=== PATIENT | male | born 1995 | race Caucasian/White ===

== ENCOUNTER → 2022-07-10 | Outpatient (CLI) | payer BC, SELFPAY ==
[2022-07-10 17:50] LABS: Absolute Lymphocyte Count 1.76 X10^3/uL (0.83-4.51); Absolute Neutrophil Count 4.4 X10^3/uL (2.0-7.7); Basophil# 0.03 X10^3/uL; Basophil% 0.4 % (0-1); Eosinophil# 0.12 X10^3/uL; Eosinophils% 1.8 % (0-5); Hemoglobin 14.1 g/dL (13.0-16.5); Lymphocyte # 1.76 X10^3/ul (0.83-4.51); Lymphocyte % 25.7 % (19-41); Mean Corpuscular Hgb 28.8 pg (27.0-32.0); Mean Corpuscular Volume 89.8 fL (80-94); Mean Platelet Vol. 9.8 fl (6.2-12.0); Monocyte# 0.54 X10^3/uL; Monocyte% 7.9 % (0-10); NRBC Flagged by Analyzer 0 % (0-5); Neutrophil # 4.38 X10^3/uL (2.7-7.7); Neutrophil % 64.1 % (47-70); Platelet Count 231 K/mm3 (150-450); RBC Distribution Width CV 13.1 % (11.6-14.6); RBC Distribution Width SD 42.6 fl (35.1-43.9); White Blood Count 6.8 K/mm3 (4.4-11.0)
[2022-07-10 18:53] LABS: ALB/GLOB Ratio 1.1 RATIO (0.9-2.4); AST(SGOT) 21 U/L (15-37); Alanine Aminotransfer ALT/SGPT 20 U/L (16-61); Albumin, Serum 4.1 g/dL (3.2-5.0); Alkaline Phosphatase 57 U/L (45-117); Anion Gap 5 (5-15); BUN 17 mg/dL (7-18); BUN/Creat Ratio 14.7 RATIO (10-20); Calcium,Total 8.9 mg/dL (8.5-10.1); Chloride 109 mmol/L (98-107); Cholesterol 128 mg/dL (200); Creatinine, Serum 1.16 mg/dL (0.70-1.30); EST Glomerular Filtration Rate 79 mL/min (>60); Est Glom Filt Rate - Afr Amer 96 mL/min (>60); Globulin 3.6 g/dL (2.2-4.2); Glucose 87 mg/dL (74-106); Hemoglobin A1c 5.3 % (3.8-5.6); High Density Lipoprotein 39 mg/dL; Potassium 4.3 mmol/L (3.5-5.1); Protein, Total 7.7 g/dL (6.4-8.2); Sodium Level 140 mmol/L (136-145); Thyroid Stim Hormone (TSH) 1.99 uIU/mL (0.358-3.74); Triglycerides 89 mg/dL; Very Low Density Lipoprotein 18 mg/dL (5-40)
== END | disposition home or self-care (01) ==
PROVIDERS: PCP Family Medicine; Referring Provider Family Medicine; Visit Provider Family Medicine
DX: Z00.00 Encounter for general adult medical examination without abnormal findings (principal); Z13.0 Encounter for screening for diseases of the blood and blood-forming organs and certain disorders involving the immune mechanism; Z13.1 Encounter for screening for diabetes mellitus; Z13.220 Encounter for screening for lipoid disorders; Z13.29 Encounter for screening for other suspected endocrine disorder
CPT/HCPCS: 36415; 80053; 80061; 83036; 84443; 85025

== ENCOUNTER 2022-11-13 17:52 | Outpatient (RCR) | payer BC, SELFPAY | END 2022-11-13 19:00 | disposition home or self-care (01) | LOC: PT 17:52 | PROVIDERS: PCP Family Medicine; Visit Provider Orthopaedic Surgery Sports Medicine | DX: M70.52 Other bursitis of knee, left knee (principal); M25.462 Effusion, left knee; M25.562 Pain in left knee ==

== ENCOUNTER → 2024-10-01 | Outpatient (CLI) | payer BC, SELFPAY ==
--- OUTSIDE RECORDS SUMMARY | 2024-10-01 11:59 | XMS RPT_ITS | CCD ---
Author Organization [facility] Care Team Providers Care Case Sealer Name Role Phone Unavailable Primary Care Provider UnavailDO Nolvia Grewal Primary Care Provider DO Nolvia Majano Referring Provider MD Blu López Attending Provider [phone] Blu López Attending Unavailable Nolvia Majano Primary Care Unavailable Blu López Referring Unavailable Blu López Attending Unavailable Kishore Landa Attending Unavailable Nolvia Majano Primary Care Unavailable Blu López Attending Unavailable Nolvia Majano Referring Unavailable Nolvia Majano Referring Unavailable Nolvia Majano Attending Unavailable Nolvia Majano Primary Care Unavailable Nolvia Majano Primary Care Unavailable Blu López Attending Unavailable Medications Current Medications Medication Drug Class(es) Dates Sig (Normalized) Sig (Original) cholecalciferol 0.025 mg oral capsule (2 sources) Vitamin D Start: 01-31-2022 take 25 ug by mouth once daily Cholecalciferol (Vitamin D3) Active 25 MCG PO DAILY January 31, 2022 12:00am Multivitamin (Daily Multi-Vitamin) tablet (2 sources) Start: 01-31-2022 take 1 tablet by mouth once daily Multivitamin (Daily Multi-Vitamin) tablet Active 1 TABLET PO DAILY January 31, 2022 12:00am Start: 01-31-2022 take 1 tablet by radha th once daily Multivitamin (Daily Multi-Vitamin) tablet Active 1 TABLET PO DAILY January 31, 2022 1:00am Problems Problem Classification Problem Date Documented Da te Episodic/Chronic Other connective tissue disease (2 sources) Pes anserinus bursitis of left knee; Translations: [Other bursitis of knee, left knee] 12-15-2022 Episodic Other connective tissue disease (3 sources) Other bursitis of knee, left knee; Translations: [Pes anserinus tendinitis or bursitis] Onset: 11-15-2022 11-07-2022 Episodic Other non-traumatic joint disorders (2 sources) Swelling of knee joint; Translations: [Effusion, left knee] 01-31-2022 Episodic Other non-traumatic joint disorders (4 sources) Pain in left knee; Translations: [Left knee pain] Onset: 01-01-2023 01-31-2022 Episodic Other non-traumatic joint disorders (2 sources) Effusion, left knee; Translations: [Effusion of joint, lower leg] Onset: 01-01-2023 11-07-2022 Episodic Results Test Name Value Interpretation Reference Range Facility Orthopedic Visit Reporton Orthopedic Visit Report [facility] [address] [place] [address] OFFICE VISIT Date of Service: 11/07/22 MR#: [id number] Acct: [id number] Name: MONA BURNS Rep #: [id number] : 1995 Provider: Dr. Blu churchill MD Age/Sex: 27/M Location: [facility] Status: Signed Intake Intake Visit Reasons: LEFT KNEE Chief Complaint: Left knee Accompanied by: Self Is patient in pain?: Yes Pain scale (1-10): 3 Allergies No Known Allergies Allergy (Verified 11/07/22 10:13) Medications cholecalciferol (vitamin D3) 25 mcg (1,000 unit) capsule 25 mcg PO DAILY 01/31/22 [History Confirmed 11/07/22] multivitamin (Daily Multi-Vitamin tablet) 1 tab PO DAILY 01/31/22 [History Confirmed 11/07/22] PFSH Medical History Left knee pain Pes anserinus bursitis of left knee Swelling of left knee joint Surgical History History of repair of ACL History of right knee surgery Family History Other Hypertension Social History Smoking Status: Never smoker alcohol intake: never what type of physical activity do you participate in: other details: basketball frequency: 3-4 times per week HPI LEFT KNEE Details: Parts of this documentation were recorded by a scribe, this documentation accurately reflects the service provided and the decisions made by me, Dr. Blu López MD 11/07/22 0918. MONA BURNS is a 27 year old M here today for 9 months FU left knee pain seems to come from the pes bursitis. He is still experiencing pain and especially with swelling after any sort of physical demanding activity. He likes to play basketball once a week he has pain in the anterior medial aspect of the knee. Has some catching no giving way the knee feels stable bilateral. It is swelling and limiting his activities the next day. Ortho Exam General General: Yes no acute distress Neurologic: Yes alert and Yes oriented x3 Psychologic: Yes reasonable and appropriate Right Knee Patella Translation: 2 Left Knee Skin/Wound: Yes CDI, No ecchymosis, No erythema and No swelling Knee ROM: Yes ROM-Flexion 0-140 and Yes ROM-Passive Extension -10 to 0 Examination: No med jt line tenderness, Yes Lat jt line tenderness, No TTP inf pole patella, No Crepitus, No Pain with flexion, Yes Simon's Test, No TTP Patellar tendon, No TTP Tibial tubercle, Yes TTP Pes Anserine and No Illiotibial band tenderness Stability: NML: Anterior Drawer, NML: Bryan, NML: Posterior Drawer, NML: Valgus 0, NML: Valgus 30, NML: Varus 0 and NML: Varus 30 Patella Translation: 2 Patellar Tilt Normal: Yes Patella Grind: No KNEE: normal gait, small bruise on medial joint line Supplemental Info [facility] [address] [place] [address] Knee 4 or More Views MR#: [id number] Acct: [id number] Name: MONA BURNS Rep #: [id number] : 1995 M 26 From: Troy Solano MD PCP: Status: DEP AMB Study: Knee 4 or More Views Date of Exam: 01/31/22 Exam# [id number] Ordering Dr: Blu López MD STUDY: X-RAY - LEFT KNEE REASON FOR EXAM: Male, 26 years old. Pain and swelling. TECHNIQUE: 5 view(s) of the knee. COMPARISON: None. FINDINGS: Normal visualized distal femur. Normal visualized proximal tibia and fibula. Normal proximal tibiofibular articulation. Normal medial femorotibial compartment. Normal lateral femorotibial compartment. Normal patellofemoral articulation. The soft tissue structures are unremarkable. RAD/Knee 4 or More Views IMPRESSION: No abnormality of the left knee. Electronically Signed: Troy Solano, at 13:21 EST , Coding Level of Care Code Off vis,est,level 3 Diagnoses Pes anserinus bursitis of left knee M70.52 Swelling of left knee joint M25.462 Left knee pain M25.562 Assessment and Plan Assessment and Plan (1) Pes anserinus bursitis of left knee: Status: Acute Plan: MONA BURNS is a 27 year old M here today for 9 months FU left knee pain seems to come from the pes bursitis. (2) Swelling of left knee joint: Status: Acute Plan: 27 yr Man with ongoing 9 months history of left knee pain. He has swelling after activities with a positive Simon's test and prior arthroscopy on the contralateral knee. I think it is worthwhile to obtain an MRI here to rule o (more content not included)... Normal [facility] Absolute lymphocyte countOrd ered By: Nolvia Majano on 07-10-2022 Lymphocytes Auto (Unsp spec) [#/Vol] 1.76 10*3/uL 0.83-4.51 [facility] Basophil percentageOrdered B y: Nolvia Majano on 07-10-2022 Basophils/100 WBC (Bld) 0.4 % 0-1 [facility] Bilirubin [Mass/Vol] 0.40 mg/dL 0.20-1.00 [facility] Comment on above: For patients on eltr ombopag therapy, use of Dimension Atlantic TBIL is not recommended. Chloride [Moles/Vol] 109 mmol/L 98-107 [facility] Cholesterol [Mass/Vol] 128 mg/dL <200 [facility] Comment on above: <200 mg/dL Desirable 200-240 mg/dL Borderline >240 mg/dL High Risk Eosinophils/100 WBC (Bld) 1.8 % 0-5 [facility] Glucose [Mass/Vol] 87 mg/dL 74-106 [facility] Neutrophils (Bld) [#/Vol] 4.4 10*3/uL 2.0-7.7 [facility] Neutrophils/100 WBC (Bld) 64.1 % 47-70 [facility] Potassium [Moles/Vol] 4.3 mmol/L 3.5-5.1 [facility] Protein [Mass/Vol] 7.7 g/dL 6.4-8.2 [facility] Sodium [Moles/Vol] 140 mmol/L 136-145 [facility] Triglyceride [Mass/Vol] 89 mg/dL <199 [facility] Comment on above: The drugs N-Acetylcy steine and Metamizole may falsely depress this assay.Serum Triglycerides Reference Interval Normal <150 mg/dL Borderline high 150 - 199 mg/dL High 200 - 499 mg/dL Very High > or = 500 mg/dL WBC (Bld) [#/Vol] 6.8 10*3/uL 4.4-11.0 [facility] Blood erythrocytes count (nu mber/volume)Ordered By: Nolvia Majano on 07-10-2022 RBC (Bld) [#/Vol] 4.90 10*6/uL 4.6-6.2 [facility] Blood hemoglobin measurement (mass/volume)Ordered By: Nolvia Majano on 07-10-2022 Hemoglobin (Bld) [Mass/Vol] 14.1 g/dL 13.0-16.5 [facility] Blood lymphocytes/100 leukoc ytesOrdered By: Nolvia Majano on 07-10-2022 Lymphocytes/100 WBC (Bld) 25.7 % 19-41 [facility] Blood monocytes/100 leukocyt esOrdered By: Nolvia Majano on 07-10-2022 Monocytes/100 WBC (Bld) 7.9 % 0-10 [facility] Blood platelet mean volumeOr dered By: Nolvia Majano on 07-10-2022 Platelet mean volume (Bld) [Entitic vol] 9.8 fL 6.2-12.0 [facility] CBC W/Diff, Automatedon 06-18 Absolute Lymph 1.76 X10 3/uL Normal 0.83-4.51 [facility] Comment on above: Order Comment: Order Date: 07/10/22 Order Info: 0184-1 - CBCD Performed By: #### L 100.0100, L501.9985, L500.4050, L500.4100, L501.9520 #### [facility] [address] [place], [address] Absolute Neut 4.4 X10 3/uL Normal 2.0-7.7 [facility] Comment on above: Order Comment: Order Date: 07/10/22 Order Info: 0184-1 - CBCD Performed By: #### L 100.0100, L501.9985, L500.4050, L500.4100, L501.9520 #### [facility] [address] [place], [address] Basophils/100 WBC (Bld) 0.4 % Normal 0-1 [facility] Comment on above: Order Comment: Order Date: 07/10/22 Order Info: 0184-1 - CBCD Performed By: #### L 100.0100, L501.9985, L500.4050, L500.4100, L501.9520 #### [facility] [address] [place], [address] Eosinophils/100 WBC (Bld) 1.8 % Normal 0-5 [facility] Comment on above: Order Comment: Order Date: 07/10/22 Order Info: 0184-1 - CBCD Performed By: #### L 100.0100, L501.9985, L500.4050, L500.4100, L501.9520 #### [facility] [address] [place], [address] Erythrocyte distribution width (RBC) [Ratio] 13.1 % Normal 11.6-14.6 [facility] Comment on above: Order Comment: Order Date: 07/10/22 Order Info: 0184-1 - CBCD Performed By: #### L 100.0100, L501.9985, L500.4050, L500.4100, L501.9520 #### [facility] [address] [place], [address] Hematocrit (Bld) [Volume fraction] 44.0 % Normal 40-54 [facility] Comment on above: Order Comment: Order Date: 07/10/22 Order Info: 0184-1 - CBCD Performed By: #### L 100.0100, L501.9985, L500.4050, L500.4100, L501.9520 #### [facility] [address] [place], [address] Hemoglobin (Bld) [Mass/Vol] 14.1 g/dL Normal 13.0-16.5 [facility] Comment on above: Order Comment: Order Date: 07/10/22 Order Info: 0184-1 - CBCD Performed By: #### L 100.0100, L501.9985, L500.4050, L500.4100, L501.9520 #### [facility] [address] [place], [address] IG% 0.100 Normal 0.0-0.9 [facility] Comment on above: Order Comment: Order Date: 07/10/22 Order Info: 0184-1 - CBCD Result Comment: IG% - Immature Granulocytes (promyelocytes, myelocytes and metamyelocytes) > 1% indicates that a LEFT SHIFT is Present. Performed By: #### L 100.0100, L501.9985, L500.4050, L500.4100, L501.9520 #### [facility] [address] [place], [address] Lymphocytes/100 WBC (Bld) 25.7 % Normal 19-41 [facility] Comment on above: Order Comment: Order Date: 07/10/22 Order Info: 018- - CBCD Performed By: #### L 100.0100, L501.9985, L500.4050, L500.4100, L501.9520 #### [facility] [address] [place], [address] MCH (RBC) [Entitic mass] 28.8 pg Normal 27.0-32.0 [facility] Comment on above: Order Comment: Order Date: 07/10/22 Order Info: 018- - CBCD Performed By: #### L 100.0100, L501.9985, L500.4050, L500.4100, L501.9520 #### [facility] [address] [place], [address] MCHC (RBC) [Mass/Vol] 32.0 g/dL Normal 32-36 [facility] Comment on above: Order Comment: Order Date: 07/10/22 Order Info: 018- - CBCD Performed By: #### L 100.0100, L501.9985, L500.4050, L500.4100, L501.9520 #### [facility] [address] [place], [address] MCV (RBC) [Entitic vol] 89.8 fL Normal 80-94 [facility] Comment on above: Order Comment: Order Date: 07/10/22 Order Info: 018-1 - CBCD Performed By: #### L 100.0100, L501.9985, L500.4050, L500.4100, L501.9520 #### [facility] [address] [place], [address] Monocytes/100 WBC (Bld) 7.9 % Normal 0-10 [facility] Comment on above: Order Comment: Order Date: 07/10/22 Order Info: 0184-1 - CBCD Performed By: #### L 100.0100, L501.9985, L500.4050, L500.4100, L501.9520 #### [facility] [address] [place], [address] Neutrophils/100 WBC (Bld) 64.1 % Normal 47-70 [facility] Comment on above: Order Comment: Order Date: 07/10/22 Order Info: 0184-1 - CBCD Performed By: #### L 100.0100, L501.9985, L500.4050, L500.4100, L501.9520 #### [facility] [address] [place], [address] Nucleated RBC (Bld) [#/Vol] 0 10*3/uL Normal 0-5 [facility] Comment on above: Order Comment: Order Date: 07/10/22 Order Info: 0184-1 - CBCD Performed By: #### L 100.0100, L501.9985, L500.4050, L500.4100, L501.9520 #### [facility] [address] [place], [address] Platelet mean volume (Bld) [Entitic vol] 9.8 fL Normal 6.2-12.0 [facility] Comment on above: Order Comment: Order Date: 07/10/22 Order Info: 0184-1 - CBCD Performed By: #### L 100.0100, L501.9985, L500.4050, L500.4100, L501.9520 #### [facility] [address] [place], [address] Platelets (Bld) [#/Vol] 231 10*3/uL Normal 150-450 [facility] Comment on above: Order Comment: Order Date: 07/10/22 Order Info: 0184-1 - CBCD Performed By: #### L 100.0100, L501.9985, L500.4050, L500.4100, L501.9520 #### [facility] [address] [place], [address] RBC (Bld) [#/Vol] 4.90 10*6/uL Normal 4.6-6.2 [facility] Comment on above: Order Comment: Order Date: 07/10/22 Order Info: 0184-1 - CBCD Performed By: #### L 100.0100, L501.9985, L500.4050, L500.4100, L501.9520 #### [facility] [address] [place], [address] RDW SD 42.6 fl Normal 35.1-43.9 [facility] Comment on above: Order Comment: Order Date: 07/10/22 Order Info: 0184-1 - CBCD Performed By: #### L 100.0100, L501.9985, L500.4050, L500.4100, L501.9520 #### [facility] [address] [place], [address] WBC (Bld) [#/Vol] 6.8 10*3/uL Normal 4.4-11.0 [facility] Comment on above: Order Comment: Order Date: 07/10/22 Order Info: 0184-1 - CBCD Performed By: #### L 100.0100, L501.9985, L500.4050, L500.4100, L501.9520 #### [facility] [address] [place], [address] Comprehensive Metabolic Prof ilon 07-10-2022 Albumin [Mass/Vol] 4.1 g/dL Normal 3.2-5.0 [facility] Comment on above: Order Comment: Order Date: 07/10/22 Order Info: [id number] - CMP Order Info: [id number] - LIPID Order Info: [id number] - TSH Performed By: #### L 100.0100, L501.9985, L500.4050, L500.4100, L501.9520 #### [facility] [address] [place], [address] Albumin/Globulin [Mass ratio] 1.1 {ratio} Normal 0.9-2.4 [facility] Comment on above: Order Comment: Order Date: 07/10/22 Order Info: [id number] - CMP Order Info: [id number] - LIPID Order Info: [id number] - TSH Performed By: #### L 100.0100, L501.9985, L500.4050, L500.4100, L501.9520 #### [facility] [address] [place], [address] ALK P 57 U/L Normal 45-117 [facility] Comment on above: Order Comment: Order Date: 07/10/22 Order Info: [id number] - CMP Order Info: [id number] - LIPID Order Info: [id number] - TSH Performed By: #### L 100.0100, L501.9985, L500.4050, L500.4100, L501.9520 #### [facility] [address] [place], [address] ALT [Catalytic activity/Vol] 20 U/L Normal 16-61 [facility] Comment on above: Order Comment: Order Date: 07/10/22 Order Info: [id number] - CMP Order Info: [id number] - LIPID Order Info: [id number] - TSH Performed By: #### L 100.0100, L501.9985, L500.4050, L500.4100, L501.9520 #### [facility] [address] [place], [address] AST [Catalytic activity/Vol] 21 U/L Normal 15-37 [facility] Comment on above: Order Comment: Order Date: 07/10/22 Order Info: [id number] - CMP Order Info: - LIPID Order Info: [id number] - TSH Performed By: #### L 100.0100, L501.9985, L500.4050, L500.4100, L501.9520 #### [facility] [address] [place], [address] Bilirubin [Mass/Vol] 0.40 mg/dL Normal 0.20-1.00 [facility] Comment on above: Order Comment: Order Date: 07/10/22 Order Info: [id number] - CMP Order Info: - LIPID Order Info: [id number] - TSH Result Comment: For patients on eltrombopag therapy, use of Dimension Atlantic TBIL is not recommended. Performed By: #### L 100.0100, L501.9985, L500.4050, L500.4100, L501.9520 #### [facility] [address] [place], [address] BUN/CRE 14.7 RATIO Normal 10-20 [facility] Comment on above: Order Comment: Order Date: 07/10/22 Order Info: [id number] - CMP Order Info: - LIPID Order Info: [id number] - TSH Performed By: #### L 100.0100, L501.9985, L500.4050, L500.4100, L501.9520 #### [facility] [address] [place], [address] CA,Total 8.9 mg/dL Normal 8.5-10.1 [facility] Comment on above: Order Comment: Order Date: 07/10/22 Order Info: [id number] - CMP Order Info: - LIPID Order Info: [id number] - TSH Performed By: #### L 100.0100, L501.9985, L500.4050, L500.4100, L501.9520 #### [facility] [address] [place], [address] Chloride [Moles/Vol] 109 mmol/L High 98-107 [facility] Comment on above: Order Comment: Order Date: 07/10/22 Order Info: 785- - CMP Order Info: [id number] - LIPID Order Info: [id number] - TSH Performed By: #### L 100.0100, L501.9985, L500.4050, L500.4100, L501.9520 #### [facility] [address] [place], [address] CO2 [Moles/Vol] 26.0 mmol/L Normal 21.0-32.0 [facility] Comment on above: Order Comment: Order Date: 07/10/22 Order Info: [id number] - CMP Order Info: - LIPID Order Info: [id number] - TSH Performed By: #### L 100.0100, L501.9985, L500.4050, L500.4100, L501.9520 #### [facility] [address] [place], [address] Creatinine [Mass/Vol] 1.16 mg/dL Normal 0.70-1.30 [facility] Comment on above: Order Comment: Order Date: 07/10/22 Order Info: [id number] - CMP Order Info: - LIPID Order Info: [id number] - TSH Result Comment: The validity of the calculated GFR GFRAA in patients over 70 years has not been determined. Clinical correlation is essential. Performed By: #### L 100.0100, L501.9985, L500.4050, L500.4100, L501.9520 #### [facility] [address] [place], [address] EST GFR - AA 96 mL/min Normal >60 [facility] Comment on above: Order Comment: Order Date: 07/10/22 Order Info: [id number] - CMP Order Info: - LIPID Order Info: [id number] - TSH Result Comment: Afri can [place] GFR Calc Performed By: #### L 100.0100, L501.9985, L500.4050, L500.4100, L501.9520 #### [facility] [address] [place], [address] GAP 5 Normal 5-15 [facility] Comment on above: Order Comment: Order Date: 07/10/22 Order Info: [id number] - CMP Order Info: [id number] - LIPID Order Info: 3 - TSH Performed By: #### L 100.0100, L501.9985, L500.4050, L500.4100, L501.9520 #### [facility] [address] [place], [address] GFR/1.73 sq M.predicted among non-blacks MDRD (S/P/Bld) [Vol rate/Area] 79 mL/min/{1.73_m2} Normal >60 [facility] Comment on above: Order Comment: Order Date: 07/10/22 Order Info: [id number] - CMP Order Info: - LIPID Order Info: 3 - TSH Result Comment: Non- GFR Calc Performed By: #### L 100.0100, L501.9985, L500.4050, L500.4100, L501.9520 #### [facility] [address] [place], [address] Globulin (S) [Mass/Vol] 3.6 g/dL Normal 2.2-4.2 [facility] Comment on above: Order Comment: Order Date: 07/10/22 Order Info: 07 - CMP Order Info: [id number] - LIPID Order Info: 3 - TSH Performed By: #### L 100.0100, L501.9985, L500.4050, L500.4100, L501.9520 #### [facility] [address] [place], [address] Glucose [Mass/Vol] 87 mg/dL Normal 74-106 [facility] Comment on above: Order Comment: Order Date: 07/10/22 Order Info: [id number] - CMP Order Info: - LIPID Order Info: [id number] - TSH Performed By: #### L 100.0100, L501.9985, L500.4050, L500.4100, L501.9520 #### [facility] [address] [place], [address] Potassium [Moles/Vol] 4.3 mmol/L Normal 3.5-5.1 [facility] Comment on above: Order Comment: Order Date: 07/10/22 Order Info: [id number] - CMP Order Info: - LIPID Order Info: [id number] - TSH Performed By: #### L 100.0100, L501.9985, L500.4050, L500.4100, L501.9520 #### [facility] [address] [place], [place], [address] Sodium [Moles/Vol] 140 mmol/L Normal 136-145 [facility] Comment on above: Order Comment: Order Date: 07/10/22 Order Info: [id number] - CMP Order Info: - LIPID Order Info: [id number] - TSH Performed By: #### L 100.0100, L501.9985, L500.4050, L500.4100, L501.9520 #### [facility] [address] [place], [address] T PROT 7.7 g/dL Normal 6.4-8.2 [facility] Comment on above: Order Comment: Order Date: 07/10/22 Order Info: [id number] - CMP Order Info: [id number] - LIPID Order Info: [id number] - TSH Performed By: #### L 100.0100, L501.9985, L500.4050, L500.4100, L501.9520 #### [facility] [address] [place], [place], [address] Urea nitrogen [Mass/Vol] 17 mg/dL Normal 7-18 [facility] Comment on above: Order Comment: Order Date: 07/10/22 Order Info: [id number] - CMP Order Info: [id number] - LIPID Order Info: [id number] - TSH Performed By: #### L 100.0100, L501.9985, L500.4050, L500.4100, L501.9520 #### [facility] [address] [place], [place], [address] Determination of erythrocyte mean corpuscular volume (MCV)Ordered By: Nolvia Majano on 07-10-2022 MCV (RBC) [Entitic vol] 89.8 fL 80-94 [facility] Hematocrit Auto (Bld) [Volum e fraction]Ordered By: Nolvia Majano on 07-10-2022 Hematocrit (Bld) [Volume fraction] 44.0 % 40-54 [facility] Hemoglobin A1con 07-10-2022 HbA1c (Bld) [Mass fraction] 5.3 % Normal 3.8-5.6 [facility] Comment on above: Order Comment: Order Date: 07/10/22 Order Info: [id number] - A1C Result Comment: Norm al < 5.7 % Prediabetic 5.7 - 6.4 % Diabetic >or= 6.5 % Please note range changes. Performed By: #### L 100.0100, L501.9985, L500.4050, L500.4100, L501.9520 #### [facility] [address] [place], [place], [id number] Laboratory - Chemistry and C hemistry - challengeOrdered By: Nolvia Majano on 07-10-2022 ALP [Catalytic activity/Vol] 57 U/L 45-117 [facility] ALT [Catalytic activity/Vol] 20 U/L 16-61 [facility] CO2 [Moles/Vol] 26.0 mmol/L 21.0-32.0 [facility] Globulin (S) [Mass/Vol] 3.6 g/dL 2.2-4.2 [facility] Urea nitrogen/Creatinine [Mass ratio] 14.7 mg/mg 10-20 [facility] - Hematology and Cell countsOrdered By: Nolvia Majano on 07-10-2022 Erythrocyte distribution width (RBC) [Entitic vol] 42.6 fL 35.1-43.9 [facility] Erythrocyte distribution width (RBC) [Ratio] 13.1 % 11.6-14.6 [facility] Immature granulocytes/100 WBC (Bld) 0.100 % 0.0-0.9 [facility] Comment on above: IG% - Immature Granu locytes (promyelocytes, myelocytes and metamyelocytes) > 1% indicates that a LEFT SHIFT is Present. MCH (RBC) [Entitic mass] 28.8 pg 27.0-32.0 [facility] Nucleated RBC/100 WBC (Bld) [Ratio] 0 % 0-5 [facility] Lipid Profileon 07-10-2022 Cholesterol [Mass/Vol] 128 mg/dL Normal 200 [facility] Comment on above: Order Comment: Order Date: 07/10/22 Order Info: [id number] - CMP Order Info: [id number] - LIPID Order Info: [id number] - TSH Result Comment: <200 mg/dL Desirable 200-240 mg/dL Borderline >240 mg/dL High Risk Performed By: #### L 100.0100, L501.9985, L500.4050, L500.4100, L501.9520 #### [facility] [address], [place], [address] Cholesterol in HDL [Mass/Vol] 39 mg/dL Low [facility] Comment on above: Order Comment: Order Date: 07/10/22 Order Info: [id number] - CMP Order Info: [id number] - LIPID Order Info: [id number] - TSH Result Comment: The drugs N-Acetylcysteine and Metamizole may falsely depress this assay. Reference Range HDL <40 mg/dL Low HDL Cholesterol HDL >or= 60 mg/dL High HDL Cholesterol Performed By: #### L 100.0100, L501.9985, L500.4050, L500.4100, L501.9520 #### [facility] [address] [place], [address] Cholesterol in LDL [Mass/Vol] 71 mg/dL Normal 0-130 [facility] Comment on above: Order Comment: Order Date: 07/10/22 Order Info: [id number] - CMP Order Info: [id number] - LIPID Order Info: 6-3 - TSH Performed By: #### L 100.0100, L501.9985, L500.4050, L500.4100, L501.9520 #### [facility] [address] [place], [address] Cholesterol in VLDL [Mass/Vol] 18 mg/dL Normal 5-40 [facility] Comment on above: Order Comment: Order Date: 07/10/22 Order Info: [id number] - CMP Order Info: [id number] - LIPID Order Info: 3 - TSH Performed By: #### L 100.0100, L501.9985, L500.4050, L500.4100, L501.9520 #### [facility] [address] [place], [address] Triglyceride [Mass/Vol] 89 mg/dL Normal [facility] Comment on above: Order Comment: Order Date: 07/10/22 Order Info: [id number] - CMP Order Info: [id number] - LIPID Order Info: [id number] - TSH Result Comment: The drugs N-Acetylcysteine and Metamizole may falsely depress this assay. Serum Triglycerides Reference Interval Normal <150 mg/dL Borderline high 150 - 199 mg/dL High 200 - 499 mg/dL Very High > or = 500 mg/dL Performed By: #### L 100.0100, L501.9985, L500.4050, L500.4100, L501.9520 #### [facility] [address] [place], [address] MCHC Auto (RBC) [Mass/Vol]Or dered By: Nolvia Majano on 07-10-2022 MCHC (RBC) [Mass/Vol] 32.0 g/dL 32-36 [facility] No Panel InformationOrdered By: Nolvia Majano on 07-10-2022 Estimated GFR (MDRD) Amer 96 mL/min >60 [facility] Comment on above: GFR Calc Estimated GFR (MDRD) Non-Af Amer 79 mL/min >60 [facility] Comment on above: Non- GFR Calc Thyroid Stimulating Hormone (TSH) 1.99 uIU/mL 0.358-3.74 [facility] Platelets bldOrdered By: Yumiko Majano on 07-10-2022 Platelets (Bld) [#/Vol] 231 10*3/uL 150-450 [facility] Serum or plasma albumin iraj urement (mass/volume)Ordered By: Nolvia Majano on 07-10-2022 Albumin [Mass/Vol] 4.1 g/dL 3.2-5.0 [facility] Serum or plasma albumin/glob ulin mass ratioOrdered By: Nolvia Majano on 07-10-2022 Albumin/Globulin [Mass ratio] 1.1 {ratio} 0.9-2.4 [facility] Serum or plasma calcium iraj urement (mass/volume)Ordered By: Nolvia Majano on 07-10-2022 Calcium [Mass/Vol] 8.9 mg/dL 8.5-10.1 [facility] Serum or plasma cholesterol in HDL measurement (mass/volume)Ordered By: Nolvia Majano on 07-10-2022 Cholesterol in HDL [Mass/Vol] 39 mg/dL >40 [facility] Comment on above: The drugs N-Acetylcy steine and Metamizole may falsely depress this assay. Reference Range HDL <40 mg/dL Low HDL Cholesterol HDL >or= 60 mg/dL High HDL Cholesterol Serum or plasma cholesterol in VLDL measurement (mass/volume)Ordered By: Nolvia Majano on 07-10-2022 Cholesterol in VLDL [Mass/Vol] 18 mg/dL 5-40 [facility] Serum or plasma creatinine m easurement (mass/volume)Ordered By: Nolvia Majano on 07-10-2022 Creatinine [Mass/Vol] 1.16 mg/dL 0.70-1.30 [facility] Comment on above: The validity of the calculated GFR & GFRAA in patients over 70 years has not been determined. Clinical correlation is essential. Serum or plasma low density lipoprotein (LDL) cholesterol measurement (mass/volume)Ordered By: Nolvia Majano on 07-10-2022 Cholesterol in LDL [Mass/Vol] 71 mg/dL 0-130 [facility] Serum or plasma urea nitroge n measurement (mass/volume)Ordered By: Nolvia Majano on 07-10-2022 Urea nitrogen [Mass/Vol] 17 mg/dL 7-18 [facility] Thin prep Papanicolaou smear with manual screeningOrdered By: Nolvia Majano on 07-10-2022 Thin prep Papanicolaou smear with manual screening 21 U/L 15-37 [facility] Thin prep Papanicolaou smear with manual screening 5 5-15 [facility] Thyroid Stim Hormone (TSH)on 07-10-2022 TSH 1.99 uIU/mL Normal 0.358-3.74 [facility] Comment on above: Order Comment: Order Date: 07/10/22 Order Info: [id number] - CMP Order Info: [id number] - LIPID Order Info: [id number] - TSH Performed By: #### L 100.0100, L501.9985, L500.4050, L500.4100, L501.9520 #### [facility] [address] [place], [address] Whole blood hemoglobin A1c/t otal hemoglobin ratio (mass fraction)Ordered By: Nolvia Majano on 07-10-2022 HbA1c (Bld) [Mass fraction] 5.3 % 3.8-5.6 [facility] Comment on above: Normal < 5.7 % Predi abetic 5.7 - 6.4 % Diabetic >or= 6.5 % Please note range changes. Knee 4 or More Viewson 01-31 Knee 4 or More Views [facility] [address] [place] [address] Knee 4 or More Views MR#: [id number] Acct: [id number] Name: MONA BURNS Rep #: [id number] : 1995 M 26 From: Troy Solano MD PCP: Status: DEP AMB Study: Knee 4 or More Views Date of Exam: 01/31/22 Exam# [id number] Ordering Dr: Blu López MD STUDY: X-RAY - LEFT KNEE REASON FOR EXAM: Male, 26 years old. Pain and swelling. TECHNIQUE: 5 view(s) of the knee. COMPARISON: None. FINDINGS: Normal visualized distal femur. Normal visualized proximal tibia and fibula. Normal proximal tibiofibular articulation. Normal medial femorotibial compartment. Normal lateral femorotibial compartment. Normal patellofemoral articulation. The soft tissue structures are unremarkable. RAD/Knee 4 or More Views IMPRESSION: No abnormality of the left knee. Electronically Signed: Troy Solano, at 13:21 EST Reading Location ID and State: [facility] / [place] , Service support , CC: Dr. Blu López MD Hvac Engineer: Signed Normal [facility] Orthopedic Visit Reporton Orthopedic Visit Report [facility] [address] [place] [address] OFFICE VISIT Date of Service: 01/31/22 MR#: [id number] Acct: [id number] Name: MONA BURNS Rep #: [id number] : 1995 Provider: Dr. Blu churchill MD Age/Sex: 26/M Location: [facility] Status: Signed Intake Intake Visit Reasons: LEFT KNEE Is patient in pain?: Yes Pain scale (1-10): 4 Allergies No Known Allergies Allergy (Verified 01/31/22 08:33) Medications cholecalciferol (vitamin D3) 25 mcg (1,000 unit) capsule 25 mcg PO DAILY 01/31/22 [History Confirmed 01/31/22] multivitamin (Daily Multi-Vitamin tablet) 1 tab PO DAILY 01/31/22 [History Confirmed 01/31/22] [facility] Medical History (Updated 01/31/22 @ 09:01 by Blu López MD) Left knee pain Pes anserinus bursitis of left knee Swelling of left knee joint Surgical History (Updated 01/31/22 @ 08:37 by Radha Eid) History of repair of ACL History of right knee surgery Family History (Updated 01/31/22 @ 08:37 by Radha Eid) Other Hypertension Social History (Updated 01/31/22 @ 08:37 by Radha Eid) Smoking Status: Never smoker alcohol intake: never what type of physical activity do you participate in: other details: basketball frequency: 3-4 times per week HPI LEFT KNEE Details: Parts of this documentation were recorded by a scribe, this documentation accurately reflects the service provided and the decisions made by me, Dr. Blu López MD 01/29/22 4289. MONA BURNS is a 26 year old M here today for left knee swelling, no injury, 1 year history, comes and goes, mostly medial side and anteriorly. No tick bites. Does not lock up. Doing some back squats and leg exercises, a little sore inside the knee. Rest helped, but then played basketball and felt better. [place] - some fascial mobilizing. ice had prior right knee ACLR. Ortho Exam General General: Yes no acute distress Neurologic: Yes alert and Yes oriented x3 Psychologic: Yes reasonable and appropriate Right Knee Patella Translation: 2 Left Knee Skin/Wound: Yes CDI, No ecchymosis, No erythema and No swelling Knee ROM: Yes ROM-Flexion 0-140 and Yes ROM-Passive Extension -10 to 0 Examination: No med jt line tenderness, No Lat jt line tenderness, No TTP inf pole patella, No Crepitus, No Pain with flexion, No Simon's Test, No TTP Patellar tendon, No TTP Tibial tubercle, Yes TTP Pes Anserine and No Illiotibial band tenderness Stability: NML: Anterior Drawer, NML: Bryan, NML: Posterior Drawer, NML: Valgus 0, NML: Valgus 30, NML: Varus 0 and NML: Varus 30 Patella Translation: 2 Patellar Tilt Normal: Yes Patella Grind: No Supplemental Info 4 views x-rays of the knee were obtained today. No obvious acute abnormalities joint spaces are well-maintained no fracture. Coding Level of Care Code Off vis,new,level 3 Diagnoses Left knee pain M25.562 Pes anserinus bursitis of left knee M70.52 Assessment and Plan Assessment and Plan (1) Left knee pain: Status: Acute (2) Pes anserinus bursitis of left knee: Status: Acute Plan: 26-year-old man with left knee pain seems to come from the pes bursa area with bursitis in that area. No effusion ligamentous exam stable no mechanical symptoms no joint line tenderness and negative Simon's test. He can try rest ice anti-inflammatories activity modifications physical therapy he declined a referral he can try cortisone injection in that area he declined this for now it seems to be minimally symptomatic although certainly if the symptoms persist or become worse with time that I am happy to see him back in the office in follow-up. If this persist despite 6 weeks of conservative management could consider an MRI although this seems to be a fairly straightforward diagnosis to make clinically here. He understands and no further questions or concerns. Orders: Orders Knee 4 or More Views Today M25.462 - Effusion, left knee, M25.562 - Pain in left knee 01/31/22 0917 Date Blu López MD [facility] Signature: Date (if applicable) CC: Normal [facility] 05-30-2021 [facility] Telephone (SOTO) MONA BURNS ([id number]) 1995 M Date Time Provider Department 05/30/21 LADAN VILLARREAL During your visit today, we recorded the following information about you: Talon Jones LPN 05/30/2021 11:31 AM Signed Message left asking patient who is his PCP? Has he seen gastro before and who? Has he had EGD or colonoscopy and if so who, when , and where? Talon Jones LPN 06/05/2021 10:44 AM Signed Patient no showed for his appointment with Ladan Villarreal 06/05/2021. Allergies As of Date: 05/30/2021 (Not on File) Date Reviewed: Never Reviewed Reason for Visit: Question [1327] Problem List As Of Date: 05/30/2021 (None) Encounter Status:Closed by TALON JONES LPN on 06/05/21 Normal [facility] Encounters Encounter Date Encounter Type Care Provider Facility Start: 11-23-2022 ambulatory Nolvia Majano Facili ty:[facility] Start: 11-13-2022 End: 11-13-2022 ambulatory Nolvia Majano Facility:[facility] Start: 11-13-2022 End: 11-13-2022 ambulatory DO Nolvia Majano Work Phone: [facility] Work Phone: Start: 11-13-2022 End: 11-13-2022 Discharged Recurring DO Nolvia Majano Work Phone: [facility] Work Phone: Start: 11-07-2022 End: 11-07-2022 ambulatory Nolvia Majano Facility:[facility] Start: 11-07-2022 End: 11-07-2022 Patient encounter procedure DO Nolvia Majano Work Phone: [facility] Work Phone: Start: 07-17-2022 Encounter for genera l adult medical examination without abnormal findings Nolvia Majano [facility] Start: 07-10-2022 End: 07-10-2022 Patient encounter procedure [facility] Start: 07-10-2022 End: 07-10-2022 ambulatory Nolvia Majano [facility] Work Phone: Start: 01-31-2022 End: 01-31-2022 ambulatory [facility] Facility:[facility] Start: 05-30-2021 Telephone encounter Ladan Villarreal APRN.CNP Work Phone: Gastroenterology Comment on above: Question Plan of Treatment Date Care Activity Detail Author Start: 11-07-2022 Patient referral [facility] Work Phone: Start: 10-18-2021 Influenza vaccination INFLUENZ A (Season Ended) [facility] Start: 2012 Urine microalbumin profile DTAP,TDAP,TD (1 - Tdap) [facility] Start: 10-10-2011 HEPATITIS C SCREENING HEPATITIS C SC [facility] Start: 10-10-2011 HIV SCREENING HIV SCREEN[facility] Start: 2005 Adult depression screening assessment DEPRESSION SCREENING [facility] Start: 1998 COVID-19 VACCINE (1) COVID-19 VACCIN E (1) [facility] MR Lower Extremity Joint [facility] Patient referral [facility] Work Phone: Payers Date Payer Category Payer Self-pay 2022 Unknown [id number] 2021 Unknown [employer] C[employer] PPO OOS [id number] 2021-Present [phone] [facility] [id number] [place] [address] PPO [id number] Unknown [id number] Unknown [id number] Unknown [id number] Unknown [id number] Unknown [id number] Unknown [id number] Social History Date Type Detail Facility Start: 01-31-2022 End: 11-07-2022 Tobacco smoking status NHIS Tobacco smoking consumption unknown [facility] Work Phone: Start: 1995 Sex Assigned At Not on file [facility] Start: 1995 Sex Assigned At Male [facility] Note 06-05-2021 Telephone Encounter - Talon Jones LPN - 06/05/2021 10:43 AM EDTTelephone Encounter - Talon Jones LPN - 05/30/2021 11:30 AM EDT Note Date & Type Note Facility 06-05-2021 Miscellaneous Notes Patient no showed for his appointment with Ladan Villarreal 06/05/2021. Message left asking patient who is his PCP? Has he seen gastro before and who? Has he had EGD or colonoscopy and if so who, when , and where? documented in this encounter [facility] Evaluation note Note Date & Type Note Facility Evaluation note No assessment information availa [facility] Work Phone: Evaluation note Note Date & Type Note Facility Evaluation note Diagnosis Onset Date Left knee pain acute Pes anserinus bursitis of left knee acute Swelling of left knee joint acute [facility] Work Phone: Summary Purpose Family History No Family History Records Found Relationship Condition Age at Onset Recorded Date/T bayron Not Specified Hypertension Unknown Advance Directives No Advanced Directives Records FoundNo Advanced Directives Records Found Chief Complaint and Reason for Visit Chief Complaint EORDER Chief Complaint LEFT KNEE BURSITIS OF LEFT KNEE. RX HERE Reason for Visit Left knee pain Pes anserinus bursitis of left knee Swelling of left knee joint Additional Source Comments Source Comments (unrecognize d section and content) In the event this informatio n is protected by the Federal Confidentiality of Alcohol and Drug Abuse Patient Records regulations: The Federal rules restrict any use of the information to criminally investigate or prosecute any alcohol or drug abuse patient.[facility] Reason for Visit (unrecogniz ed section and content) Reason Comments Question (unrecognized sect ion and content) No Status Records FoundNo Status Records Found INFORMATION SOURCE (unrecogn ized section and content) DATE CREATED AUTHOR 06/06/2021 [facility] DATE CREATED AUTHOR AUTHOR'S ORGANIZ ATION 01/02/2023 [facility] Care Teams (unrecognized sec tion and content) Team Status: Active Member Role Status Dates Nolvia Majano , Primary Care Provider Active Team Status: Inactive Member Role Status Dates Nolvia Majano DO Primary Care Provi tommie, Attending Provider, Referring Provider Active Team Status: Inactive Member Role Status Dates Nolvia Majano DO Primary Care Provider, Referring Provider Active Blu López MD Attending Provider Active Team Status: Inactive Member Role Status Dates Nolvia Majano DO Primary Care Provider Active Blu López MD Attending Provider Active Goals (unrecognized section and content) Goals may be documented in a n alternate sectionGoals may be documented in an alternate section FOR RECORDS PERTAINING TO PATIENTS WHO ARE OR HAVE BEEN ENROLLED IN A CHEMICAL DEPENDENCY/SUBSTANCEABUSE PROGRAM, SOME INFORMATION MAY BE OMITTED. This clinical summary was aggregated from multiple sources. Caution should be exercised in using it in the provision of clinical care. This summary normalizes information from multiple sources, and as a consequence, information in this document may materially change the coding, format and clinical context of patient data. In addition, data may be omitted in some cases. CLINICAL DECISIONS SHOULD BE BASED ON THE PRIMARY CLINICAL RECORDS. [employer] [facility]. provides no warranty or guarantee of the accuracy or completeness of information in this document.
[2024-10-01 12:35] LABS: Hematocrit 46.4 % (40-54); Hemoglobin 15.0 g/dL (13.0-16.5); Immature Granulocytes Count 0.010 X10^3/uL (0.0-0.0); Mean Corp Hgb Conc 32.3 g/dL (32-36); Mean Corpuscular Volume 89.1 fL (80-94); Mean Platelet Vol. 10.1 fl (6.2-12.0); NRBC Flagged by Analyzer 0 % (0-5); Platelet Count 259 K/mm3 (150-450); RBC Distribution Width CV 13.4 % (11.6-14.6); RBC Distribution Width SD 43.8 fl (35.1-43.9); Red Blood Count 5.21 M/mm3 (4.6-6.2); White Blood Count 3.8 K/mm3 (4.4-11.0)
[2024-10-01 13:33] LABS: AST(SGOT) 19 U/L (<=37); Alanine Aminotransfer ALT/SGPT 14 U/L (<=46); Albumin, Serum 4.7 g/dL (3.5-5.0); Alkaline Phosphatase 52 U/L (40-129); Anion Gap 12 (5-15); BUN 16 mg/dL (4-19); BUN/Creat Ratio 13.6 RATIO (10-20); Calcium,Total 9.6 mg/dL (7.6-11.0); Carbon Dioxide 24.8 mmol/L (21.0-32.0); Chloride 104 mmol/L (98-108); Cholesterol 166 mg/dL (<=200); Globulin 3.0 g/dL (2.2-4.2); Glucose 91 mg/dL (70-99); Low Density Lipoprotein Calc. 110 mg/dL; Potassium 4.4 mmol/L (3.3-5.1); Triglycerides 61 mg/dL; Very Low Density Lipoprotein 12 mg/dL (5-40); cholesterol:hdl ratio screen 3.78
[2024-10-06 22:07] LABS: Bluegrass, Kentucky 0.34 kU/L (Class I); Cat Hair/Dander, Standard <0.10 kU/L (Class 0); Cedar, Mountain <0.10 kU/L (Class 0); Cockroach, American <0.10 kU/L (Class 0); Dog Epithelia <0.10 kU/L (Class 0); Egg, Whole <0.10 kU/L (Class 0); Elm, American White <0.10 kU/L (Class 0); Hazelnut Tree <0.10 kU/L (Class 0); Hickory, White <0.10 kU/L (Class 0); Mulberry, White <0.10 kU/L (Class 0); Mussels <0.10 kU/L (Class 0); Oak, White <0.10 kU/L (Class 0); Pigweed, Rough <0.10 kU/L (Class 0); Plantain, English <0.10 kU/L (Class 0); Ragweed, Short/Common <0.10 kU/L (Class 0); Sheep Sorrel(Dock) <0.10 kU/L (Class 0); Sycamore, American <0.10 kU/L (Class 0)
== END | disposition home or self-care (01) ==
LOC: MTLAB 10:09
PROVIDERS: PCP Family Medicine; Referring Provider Family Medicine; Visit Provider Family Medicine
DX: Z91.018 Allergy to other foods (principal); Z13.29 Encounter for screening for other suspected endocrine disorder; Z13.220 Encounter for screening for lipoid disorders; Z13.1 Encounter for screening for diabetes mellitus; T78.40XA Allergy, unspecified, initial encounter
CPT/HCPCS: 36415; 80053; 80061; 84443; 85025; 86003; 86005